=== PATIENT | female | born 1975 | race American Indian/Alaskan Native ===

== ENCOUNTER 2021-11-08 23:21 | Emergency (ER) | payer SELFPAY ==
[2021-11-08 23:29] VITALS: BP 178/89
== END 2021-11-09 01:00 ==
LOC: ED 23:21
DX: M54.9 Dorsalgia, unspecified (principal); Z53.21 Procedure and treatment not carried out due to patient leaving prior to being seen by health care provider

== ENCOUNTER 2021-11-09 07:41 | Emergency (ER) | payer SELFPAY ==
[2021-11-09 07:52] VITALS: BP 183/90
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
== END 2021-11-09 08:41 | disposition home or self-care (01) ==
LOC: ED 07:41
DX: M54.9 Dorsalgia, unspecified (principal); V49.9XXA Car occupant (driver) (passenger) injured in unspecified traffic accident, initial encounter; Y93.89 Activity, other specified; Y92.488 Other paved roadways as the place of occurrence of the external cause; Y99.8 Other external cause status
CPT/HCPCS: 99282